=== PATIENT | male | born 1930 | race Caucasian/White ===

== ENCOUNTER → 2018-01-07 | Outpatient (CLI) | payer MEDICARE ==
[~2018-01-07] MED LIST: IOPAMIDOL 370 MG/ML 200 ML INFUS..BTL INJ ONE
[2018-01-07 19:01] LABS: BLOOD UREA NITROGEN 23 mg/dL (7-26); BUN/CREATININE RATIO 25 (6-25); CREATININE, SERUM 0.92 mg/dL (0.72-1.25); EST GLOMERULAR FILTRATION RATE > 60 ML/MIN (60-)
--- NOTE | 2018-01-07 20:11 | Diagnostic Imaging Report ---
EXAM: CT Abdomen and Pelvis WITH contrast INDICATION: History of umbilical hernia. ^[id number] ^[id number] COMPARISON: None. TECHNIQUE: Abdomen and pelvis were scanned utilizing a multidetector helical scanner from the lung base to the pubic symphysis after administration of IV contrast. Coronal and sagittal reformations were obtained. Dose modulation, iterative reconstruction, and/or weight based adjustment of the mA/kV was utilized to reduce the radiation dose to as low as reasonably achievable. Routine protocol was performed. Scan was performed when during portal venous phase. IV CONTRAST: 100 mL of Isovue-370 ORAL CONTRAST: Water COMPLICATIONS: None RADIATION DOSE: Total DLP: 373.13 mGy*cm Estimated effective dose: (DLP x 0.015 x size factor) mSv CTDIvol has been reviewed. It is below the limits set by the Radiation Protocol Committee (RPC). 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 LOWER THORAX: Coronary artery calcifications. Medial right base scarring with traction bronchiectasis. HEPATOBILIARY: No focal hepatic lesions. No biliary ductal dilation. GALLBLADDER: Small gallstone in gallbladder neck. No wall thickening. SPLEEN: No splenomegaly. PANCREAS: No focal masses or ductal dilatation. ADRENALS: No adrenal nodules KIDNEYS/URETERS: Kidneys enhance symmetrically. No hydronephrosis. Mildly atrophic left kidney. Bilateral subcentimeter hypodensities are too small to characterize. No renal mass. No stones. GI TRACT: No abnormal distention, wall thickening, or evidence of bowel obstruction. Colonic diverticulosis without evidence of diverticulitis. Large hiatal hernia with herniation of the gastric fundus and body. Appendix is normal. PELVIC ORGANS/BLADDER: Unremarkable. LYMPH NODES: No lymphadenopathy. VESSELS: There is mild to moderate atherosclerotic disease in the aorta and major arterial branches. Markedly tortuous splenic artery with severe atherosclerotic calcifications. PERITONEUM / RETROPERITONEUM: No free air or fluid. BONES: Severe degenerative changes of the lumbar spine. SOFT TISSUES: Fat and bowel containing umbilical hernia. The hernia neck measures approximately 5.5 cm and hernia sac measures 7.7 cm in craniocaudal dimension. IMPRESSION: 1. Cholelithiasis without evidence of cholecystitis. 2. Colonic diverticulosis without evidence of diverticulitis. 3. Large hiatal hernia with herniation of the gastric fundus and body. 4. Fat and bowel containing umbilical hernia as described above. No evidence of bowel obstruction. 5. Mildly atrophic left kidney. Signed by: Dr. Hernán Kellogg MD on 01/07/2018 8:08 PM
== END ==
LOC: CT 17:48
PROVIDERS: ATTEND Emergency Medicine
DX: R10.9 Unspecified abdominal pain (principal)
CPT/HCPCS: 36415; 74177; 82565; 84520; Q9967